=== PATIENT | female | born 1955 | race Caucasian/White ===

== ENCOUNTER → 2017-04-22 | Outpatient (CLI) | payer BC | END | disposition home or self-care (01) | DX: R26.2 Difficulty in walking, not elsewhere classified (principal); M17.11 Unilateral primary osteoarthritis, right knee; M25.561 Pain in right knee; M25.661 Stiffness of right knee, not elsewhere classified; M62.81 Muscle weakness (generalized) | CPT/HCPCS: 97110 GP; 97150 GO; 97161 GP; 97165 GO ==

== ENCOUNTER 2017-05-12 05:34 | Inpatient (IN) | payer BC ==
[~2017-05-12] VITALS: Ht 162.6 cm; Wt 90.2 kg
[~2017-05-12 05:34] MED LIST: B-COMPLEX-VITA1 EACH PO; CELEXA40 MG PO; COZAAR50 MG PO; FISH OIL 1,0001 EAC7 PO; HYDROCHLOROTHIA25 MG PO; LITE COAT ASPI325 M1 PO; TURMERIC500 M1 PO; VITAMIN D5000 UNI1 PO
[2017-05-12 06:36] VITALS: BP 159/68
[2017-05-12 11:15] VITALS: BP 150/68
[2017-05-12 13:24] VITALS: BP 137/63
[2017-05-12 15:49] VITALS: BP 130/62
[2017-05-12 20:04] VITALS: BP 135/62
[2017-05-12 22:40] VITALS: BP 135/64
[2017-05-13 00:30] VITALS: BP 135/63
[2017-05-13 04:20] VITALS: BP 127/60
[2017-05-13 06:38] LABS: HEMATOCRIT 39.2 % (36.0-46.0); MCV 99.5 FL (83-99)
[2017-05-13 07:02] LABS: ANION GAP 7 MEQ/L (2-14); CHLORIDE 99 MEQ/L (99-109); GFR ESTIMATE (CALCULATED) > 59 mL/min/; GLUCOSE 176 mg/dL (70-99); POTASSIUM 4.7 MEQ/L (3.7-5.4); SAMPLE HEMOLYSIS CHECK 0; SAMPLE ICTERIC CHECK 0; SAMPLE LIPEMIA CHECK 0; SODIUM 139 MEQ/L (136-147); UREA NITROGEN (BUN) 20 mg/dL (9-23)
[2017-05-13 07:16] LABS: INTER. NORMALIZED RATIO 1.2; PROTHROMBIN TIME 12.6 (9.2-11.2)
[2017-05-13 08:13] VITALS: BP 128/60
[2017-05-13 12:35] VITALS: BP 145/65
[2017-05-13] MEDS ORDERED: COUMADIN5 MG PO (15:20)
[2017-05-13] MEDS ORDERED: ENDOCET 5-3251 EACH PO (15:20)
[2017-05-13 15:42] VITALS: BP 150/67
[2017-05-13 19:51] VITALS: BP 180/78
[2017-05-14 00:30] VITALS: BP 178/74
[2017-05-14 04:28] VITALS: BP 185/77
[2017-05-14 06:18] LABS: HEMATOCRIT 35.5 % (36.0-46.0); MCV 96.7 FL (83-99)
[2017-05-14 06:43] LABS: INTER. NORMALIZED RATIO 1.6; PROTHROMBIN TIME 16.9 (9.2-11.2)
[2017-05-14 08:13] VITALS: BP 159/70
[2017-05-14 11:45] VITALS: BP 169/73
== END 2017-05-14 14:01 | DRG 470 ==
LOC: 2SOUTH 05:34 → 3WEST 11:00 → 2SOUTH 12:45 → 3WEST 05-14 14:01
PROVIDERS: Orthopaedic Surgery
PROC: 0SRC0J9 Replacement of Right Knee Joint with Synthetic Substitute, Cemented, Open Approach (ICD-10-PCS; principal; 2017-05-12)
DX: M17.11 Unilateral primary osteoarthritis, right knee (principal); I10 Essential (primary) hypertension; G43.909 Migraine, unspecified, not intractable, without status migrainosus; F32.9 Major depressive disorder, single episode, unspecified
CPT/HCPCS: 80048; 85014; 85018; 85610; C1713; J0131; J0690; J1100; J1885; J2175; J2250; J2405; J3010; J7050; J7120